=== PATIENT | male | born 1960 | race Caucasian/White ===

== ENCOUNTER 2024-03-21 14:01 | Emergency (ER) | payer BC ==
[~2024-03-21] VITALS: Ht 172.7 cm; Wt 91.0 kg
[2024-03-21 14:06] VITALS: TEMP 98; O2SAT 97
[2024-03-21 15:26] LABS: CHLORIDE 106 mEq/L (98-107); POTASSIUM 4.2 mEq/L (3.5-5.1); SODIUM 140 mEq/L (136-145)
[2024-03-21 15:27] LABS: BASOPHILS % 0.6 % (0.0-2.0); CARBON DIOXIDE 27 mEq/L (21-32); EOSINOPHILS % 1.9 % (0.0-5.0); HEMATOCRIT. 47.5 % (42.0-52.0); HEMOGLOBIN. 15.7 g/dL (14.0-18.0); LYMPHOCYTES % 10.3 % (20.0-50.0); MEAN CORPUSCULAR HEMOGLOBIN 30.5 pg (28.0-32.0); MEAN CORPUSCULAR HGB CONC 33.1 g/dL (31.0-37.0); MEAN CORPUSCULAR VOLUME 92.3 fL (80.0-94.0); MEAN PLATELET VOLUME 7.5 fl (7.4-10.4); MONOCYTES % 7.8 % (2.0-8.0); NEUTROPHILS % 79.4 % (40.0-76.0); PLATELET 250 x1000/uL (130-400); RED BLOOD CELL COUNT 5.14 mill/uL (4.7-6.1); RED CELL DISTRIBUTION WIDTH 14.7 % (11.6-14.6); WHITE BLOOD COUNT 9.1 x1000/uL (4.5-11.0)
[2024-03-21 15:28] LABS: CALCIUM 9.3 mg/dL (8.7-10.4)
[2024-03-21 15:32] LABS: GLUCOSE 105 mg/dL (70-105)
[2024-03-21 15:33] LABS: UREA NITROGEN BLOOD 23 mg/dL (9-23)
[2024-03-21 15:34] LABS: TROPONIN I HIGH SENSITIVITY 6 ng/L (3.0-53)
[2024-03-21 15:36] LABS: PROTHROMBIN TIME 10.9 sec (9.6-11.0)
[2024-03-21 16:45] VITALS: BP 132/68; PULSE 87; RESP 18; O2SAT 97
== END 2024-03-21 16:49 | disposition home or self-care (01) ==
LOC: ER 14:35
DX: R55 Syncope and collapse (principal); E78.00 Pure hypercholesterolemia, unspecified
CPT/HCPCS: 36415; 71045; 80048; 83880; 84484; 85025; 93005; 99285